=== PATIENT | male | born 1970 | race American Indian/Alaskan Native ===

== ENCOUNTER 2020-01-02 17:11 | Emergency (ER) | payer BC ==
[~2020-01-02] VITALS: Ht 182.9 cm; Wt 127.0 kg
[2020-01-02 17:35] VITALS: BP 154/108
[2020-01-02] MEDS ORDERED: ALBUTEROL INHALER 1 PUFF/90 MCG INHALER IH PRN (17:50)
[2020-01-02] MEDS ORDERED: DEXA6TAB PO (18:12)
[2020-01-02] MEDS ORDERED: ALBU8HFA PO (18:12)
--- NOTE | 2020-01-02 18:26 | NUR ---
PATIENT REFUSED INHALER,WILL FILL RX INSTEAD.PROVIDER AWARE.
== END 2020-01-02 18:28 | disposition home or self-care (01) ==
LOC: ER 17:11
DX: U07.1 COVID-19 (principal); Z79.899 Other long term (current) drug therapy
CPT/HCPCS: 36415; 71045; 87635; 93005; 99285